=== PATIENT | male | born 1990 | race Caucasian/White ===

== ENCOUNTER 2021-05-28 22:26 | Emergency (ER) | payer OTHER, SELFPAY ==
--- NOTE | ~2021-05-28 | XR_ITS ---
EXAMINATION: XR chest 2V EXAM DATE: 05/28/2021 23:03 INDICATION: Dyspnea when working. Nausea. Emesis. TECHNIQUE: Frontal and lateral projections of the chest obtained and reviewed. There is no prior jose f dy for comparison. FINDINGS: The lungs are clear. There are no pleural effusions. The cardiomediastinal silhouette is within normal limits. There is no pneumothorax suspected. The bones and soft tissues are unremarkab le. IMPRESSION: No acute cardiopulmonary findings. Reviewed, dictated and finalized at location A. LING DRUM OPERATOR
--- NOTE | ~2021-05-28 | XR_ITS ---
EXAMINATION: XR abdomen/kub 1V DATE: 05/29/2021 01:38 INDICATION: Left ureteral stone. TECHNIQUE: A supine view of the abdomen on 2 radiographs was obtained. COMPARISON: CT abdomen and pelvis 05/29/2021 FINDINGS: There are no dilated loops of bowel. There is contrast in the renal collecting system. Ther e is mild left hydroureter. Surgical clips overlie the scrotum. IMPRESSION: 1. Mild left hydroureter. Reviewed, dictated and finalized at location A. UND INGREDIENT LOGISTICS SPECIALIST IMPRESSION: 1. Mild left hydroureter.
--- NOTE | ~2021-05-28 | CT_ITS ---
EXAMINATION: CT abdomen pelvis w con DATE: 05/29/2021 00:16 INDICATION: Left lower quadrant abdominal pain. Left leg pain. TECHNIQUE: Computed tomography (CT) of the abdomen and pelvis was performed with 100 mL Omnipaque 350 intravenous contrast. Automated exposure control and iterative reconstruction technique were employe d. The dose-length product was 260.65 mGy-cm. COMPARISON: None. FINDINGS: The visualized portions of the lung bases demonstrate minimal atelectasis. No pleural effus ion. The heart size is normal. No pericardial effusion. The liver, gallbladder, spleen, pancreas, and adrenal glands are normal. There is a 2 mm stone in right kidney. There is a 5 mm cyst in left kidne y. There is a 1 mm stone in left kidney. There is mild left hydronephrosis and hydroureter to the lev el of a 3 mm stone in distal left ureter. There are no dilated loops of bowel. The appendix is normal . There is mild lumbar spondylosis. IMPRESSION: 1. 3 mm stone in distal left ureter with mild left hydronephrosis and hydroureter. 2. Small bilateral nonobstructing kidney stones. Reviewed, dictated and finalized at location A. AL JOURNALIST IMPRESSION: 1. 3 mm stone in distal left ureter with mild left hydronephrosis and hydrouret er. 2. Small bilateral nonobstructing kidney stones.
[2021-05-28 22:35] VITALS: PULSE 101; RESP 24; TEMP 36.6; O2SAT 100
--- NOTE | 2021-05-28 22:35 | ED.ABDPAIN ---
HPI - Abdominal Pain General Chief Complaint: Abdominal Pain Stated Complaint: left side abd. pain, SOB, vomiting Time Seen by Provider: 05/28/21 22:34 Source: patient Mode of arrival: ambulatory Limitations: no limitations History of Present Illness HPI narrative: Patient is a 30-year-old male with a history of alcohol abuse, presenting for evaluation of nausea, vomiting, left lower quadrant abdominal pain. Patient states that he was working in a enclosed room with the mask on when he began to feel slightly short of breath, lightheaded. Patient felt like he was going to have a bowel movement, thus went to the bathroom, and began to feel nauseated. Patient then vomited several times in the bathroom. Emesis was nonbloody, nonbilious. Patient then began to panic and feel quite anxious, asking his girlfriend to bring him to the hospital. Patient states that he typically has 6 shots of vodka daily. He denies history of alcohol withdrawal. States he has not had any alcohol since yesterday. He denies fever, chills. Patient does report sharp pain in the left lower quadrant with radiation to the left flank and into the left testicle. He denies testicular swelling. No penile discharge. No dysuria or hematuria. Patient is not intoxicated. No alcohol intake today. Patient does have a history of vasectomy. Related Data Allergies Allergy/AdvReac Type Severity Reaction Status Date / Time No Known Allergies Allergy Mild Verified 02/09/17 11:52 Review of Systems Review of Systems: CONSTITUTIONAL: Denies fever, chills, or sweats. EYES: Denies visual changes, redness, or discharge. ENT: Denies rhinorrhea, congestion, sore throat, or otalgia. CARDIOVASCULAR: Denies chest pain, palpitations, or edema. RESPIRATORY: Denies cough or dyspnea. GASTROINTESTINAL: Reports left lower quadrant abdominal pain, nausea, vomiting, denies diarrhea GENITOURINARY: Denies dysuria or hematuria. Reports left testicular pain without edema. SKIN: Denies rash or itching. MUSCULOSKELETAL: Reports left flank pain without other joint pain, or myalgia. NEUROLOGIC: Denies headache, numbness, or weakness. PSYCHIATRIC: Reports anxiety PMFSH Social History Social History (Updated 05/28/21 @ 22:47 by Mer Asif MD) Smoking status: Never smoker Alcohol intake: current Drinks per week: 42 Alcohol use details: 6 shots daily Substance use: current Substance use type: marijuana Gender identity (if verbalized by the patient): Male Exam Narrative: GENERAL: Awake, alert, conversant, unwell appearing HEAD: Normocephalic, atraumatic. EYES: 2+ PERRLA and EOMI. ENT: Nares clear, no rhinorrhea or epistaxis. Mucous membranes moist. NECK: Supple. CHEST: No respiratory distress, breathing even and non labored HEART: Tachycardic rate, sinus rhythm ABDOMEN:Non distended, + LLQ tenderness with palpation, no rebound, no guarding, non rigid : Penis is circumcised. Testes are normal without tenderness on exam. No edema, erythema. EXTREMITIES: Normal range of motion. No edema. SKIN: Warm, dry, no rash. NEURO:No focal deficits. Alert and oriented x3. Ambulatory with a narrow based steady gait. Course Vital Signs Vital signs: Vital Signs Temperature 36.6 C 05/28/21 22:35 Pulse Rate 101 H 05/28/21 22:35 Respiratory Rate 24 H 05/28/21 22:35 Pulse Oximetry 100 05/28/21 22:35 Temperature 36.6 C 05/28/21 22:35 Pulse Rate 104 H 05/29/21 01:35 Respiratory Rate 18 05/29/21 01:35 Blood Pressure 168/84 H 05/29/21 01:35 Pulse Oximetry 96 05/29/21 01:35 MDM - Abdominal Pain MDM Narrative Medical decision making narrative: Patient presenting for evaluation of left lower quadrant abdominal pain, left flank pain, radiating to the left testicle. Testicular exam is normal without evidence of torsion, orchitis, epididymitis. IV access obtained, labs are drawn. Laboratory results show mild leukocytosis. No significant anemia. No ac
--- NOTE | 2021-05-28 22:51 | ECG_ITS ---
Measurements Intervals [place] Rate: 79 P: 65 CT: 144 QRS: 56 QRSD: 104 T: 59 QT: 337 QTc: 386 Interpretive Statements SINUS RHYTHM WITH MARKED SINUS ARRHYTHMIA DELAYED PRECORDIAL R/S TRANSITION NONSPECIFIC ST & T-WAVE ABNORMALITY- LATERAL LEADS BORDERLINE ECG Electronically Signed On 05-29-2021 5:22:09 OIL LEASE BUYER by Pro Linder D.O.
[2021-05-28] MEDS: SODIUM CHLORIDE 0.9% IV 1,000 ML 999 ML IV CONT (23:20)
[2021-05-28] MEDS: MORPHINE SULFATE (*CRX) 4 MG/ML INJ IV PUSH (23:21)
[2021-05-28] MEDS: METOCLOPRAMIDE HCL INJ 10 MG/2 ML VIAL IV PUSH (23:21)
[2021-05-28] MEDS: LORazepam INJ (*CRX) 2 MG/ML VIAL 0.5 MG IV PUSH (23:30)
[2021-05-28 23:42] LABS: Basophils Absolute Auto 0.1 K/mm3 (0.0-0.1); Basophils Percent Auto 0.5 % (0.2-1.2); Eosinophils Percent Auto 0.3 % (0-4.4); Hematocrit 43.6 % (42.0-52.0); Hemoglobin 15.7 g/dL (14.0-18.0); Immature Granulocyte Absolute 0.07 K/mm3 (0.00-0.031); Immature Granulocyte Percent A 0.5 % (0-0.5); Lymphocytes Absolute Auto 1.79 K/mm3 (0.9-3.2); Lymphocytes Percent Auto 13.4 % (18.3-44.2); Mean Corpuscular Hemoglobin 32.4 pg (26-34); Mean Corpuscular Volume 90.1 fl (80-100); Mean Platelet Volume 9.3 fl (7.4-10.4); Monocytes Absolute Auto 1.1 K/mm3 (0.1-0.6); Monocytes Percent Auto 8.4 % (2.6-8.5); Neutrophils Absolute Auto 10.3 K/mm3 (1.3-6.7); Neutrophils Percent Auto 76.9 % (45.5-73.1); Platelet Count Result 259 k/mm3 (150-375); Red Blood Count 4.84 M/mm3 (4.6-6.20); Red Cell Distribution Width 12.7 % (11.5-14.5); White Blood Count 13.4 K/mm3 (4.5-10.0)
[2021-05-28 23:54] LABS: Alanine Aminotransferase 19 U/L (4-50); Albumin Level 4.9 g/dL (3.5-5.1); Alkaline Phosphatase 79 U/L (38-126); Anion Gap 13 mmol/L (8-16); Aspartate Amino Transferase 37 U/L (17-59); Bilirubin,Total 0.7 mg/dL (0.2-1.3); Blood Urea Nitrogen 15 mg/dL (9-20); Calcium 10.1 mg/dL (8.4-10.2); Carbon Dioxide 22 mmol/L (22-30); Chloride 99 mmol/L (98-107); Estimated CRCL calculation 83 ml/min; Estimated Glomerular Filt Rate > 60; Glucose 89 mg/dL (65-110); Lipase 116 U/L (23-300); Sodium 134 mmol/L (137-145)
[2021-05-29 00:05] LABS: Add Urine Microscopic? YES; Appearance Urine Clear (Clear); Bacteria Urine Trace /hpf; Bilirubin Urine Negative (Negative); Blood Urine 3+ (Negative); Color Urine Straw (Yellow); Glucose Urine UA Negative (Negative); Ketones Urine 1+ mg/dL (Negative); Leukocyte Esterase Ur Negative LEU/UL (Negative); Mucus Urine Rare /lpf; Nitrate Urine Negative (Negative); Protein Urine Negative (Negative); RBC Urine 51-75 /hpf (0-2); Specific Grav Ur 1.008 (1.001-1.035); Squamous Epithelial Cell Urine Rare /hpf (Few); Urobilinogen Urine Negative mg/dL (<2.0); WBC Urine 0-3 /hpf
[2021-05-29 00:06] LABS: Troponin I < 0.012 ng/mL (0.000-0.034)
[2021-05-29 01:35] VITALS: BP 168/84; PULSE 104; RESP 18; O2SAT 96
== END 2021-05-29 01:52 | disposition home or self-care (01) ==
PROVIDERS: Family Medicine; Emergency Provider Emergency Medicine
DX: N23 Unspecified renal colic (principal); R94.31 Abnormal electrocardiogram [ECG] [EKG]
CPT/HCPCS: 36415; 71046; 74018; 74177; 80053; 81001; 83690; 84484; 85025; 93005; 96365; 96366; 96375; 99284; J0131; J2060; J2270; J2765; J7030; Q9967

== ENCOUNTER 2021-05-31 13:17 | Emergency (ER) | payer OTHER, SELFPAY ==
[2021-05-31 13:36] VITALS: BP 165/71; PULSE 185; RESP 30; TEMP 36.2; O2SAT 100
--- NOTE | 2021-05-31 13:54 | ED.ABDPAIN ---
HPI - Abdominal Pain General Chief Complaint: Abdominal Pain Stated Complaint: kidney stones Source: patient and family Mode of arrival: ambulatory History of Present Illness HPI narrative: This is a 30-year-old male who presented to urgent care with abdominal pain nausea and vomiting. According to patient's girlfriend he went to our ED department at [facility] and was given Flomax and pain medication for treatment of a nonobstructive kidney stone. According to the girlfriend he was not prescribed Flomax and they are requesting Flomax . I explained to patient and his girlfriend that they would need to go to our emergency department his problem will not be corrected with Flomax. I informed her that they will probably need imaging and consult urologist. At that time patient got up and said that his ball was hurting and left the facility. Related Data Allergies Allergy/AdvReac Type Severity Reaction Status Date / Time No Known Allergies Allergy Mild Verified 02/09/17 11:52 Review of Systems Review of Systems: Unable to complete ROS unobtainable: Yes unobtainable due to medical condition [facility] Family History Family History (Updated 05/31/21 @ 13:57 by JANELLE De Santiago) Other Family history non-contributory Social History Social History Smoking status: Never smoker Alcohol intake: current Drinks per week: 42 Alcohol use details: 6 shots daily Substance use: current Substance use type: marijuana Gender identity (if verbalized by the patient): Male Exam Narrative: Unable to complete patient left AMA Course Course Emergency Course: Patient left our facility AMA Vital Signs Vital signs: Vital Signs Temperature 97.1 F L 05/31/21 13:36 Pulse Rate 185 H 05/31/21 13:36 Respiratory Rate 30 H 05/31/21 13:36 Blood Pressure 165/71 H 05/31/21 13:36 Pulse Oximetry 100 05/31/21 13:36 Temperature 97.1 F L 05/31/21 13:36 Pulse Rate 185 H 05/31/21 13:36 Respiratory Rate 30 H 05/31/21 13:36 Blood Pressure 165/71 H 05/31/21 13:36 Pulse Oximetry 100 05/31/21 13:36 Discharge Plan Discharge Clinical Impression: Abdominal pain Qualifiers: Abdominal location: unspecified location Qualified Code(s): R10.9 - Unspecified abdominal pain Patient Disposition: Left Against Medical Advice Condition: Unstable Instructions: Abdominal Pain (ED) Prescriptions: No Action oxycodone-acetaminophen 5-325 mg tablet 1 tablet PO Q6H PRN (Reason: pain) 3 Days Qty: 14 RF: 0 tamsulosin [Flomax] 0.4 mg capsule 0.4 mg PO DAILY Qty: 30 RF: 0 ibuprofen 400 mg tablet 400 mg PO TID PRN (Reason: fever or pain) 10 Days Qty: 30 RF: 0 ondansetron 4 mg tablet,disintegrating 4 mg PO Q8H PRN (Reason: nausea and vomiting) 7 Days Qty: 20 RF: 0 acetaminophen 500 mg capsule 500 mg PO Q6H PRN (Reason: fever or pain) Qty: 30 RF: 0 Follow-up/Referrals: UNKNOWN,DOCTOR [Primary Care Provider] -
== END 2021-05-31 13:50 | disposition left against medical advice (07) ==
PROVIDERS: Emergency Provider Nurse Practitioner
DX: R10.9 Unspecified abdominal pain (principal)
CPT/HCPCS: 99211; G0463

== ENCOUNTER 2021-05-31 14:02 | Emergency (ER) | payer OTHER, SELFPAY ==
--- NOTE | ~2021-05-31 | XR_ITS ---
EXAMINATION: XR abdomen/kub 1V INDICATION: Left ureteral stone TECHNIQUE: Supine views of the abdomen were obtained on 2 radiographs. COMPARISON: CT from yesterday FINDINGS: There is a 3 mm stone projecting at the expected location of the left distal ureter, likely reflecting the stone identified on CT. There are phleboliths of the pelvis. A moderate volume of sto ol is present in the ascending and proximal transverse colon. There are no dilated loops of bowel. IMPRESSION: 1. Likely 3 mm stone in the left distal ureter. Reviewed, dictated and finalized at location A. AGE CHECKER
[2021-05-31 14:10] VITALS: BP 159/100; PULSE 110; RESP 16; TEMP 36.6; O2SAT 100
--- NOTE | 2021-05-31 15:37 | PC.NURSE ---
patient seen here on friday and dx with kidney stone. states only got vicodin filled and not the flomax he was prescribed. patient arrives to exam room screaming and using foul and threatening language stating that my balls hurt and threatening this rn that someone needs to do something now
[2021-05-31] MEDS: TAMSULOSIN HCL 0.4 MG CAPSULE PO (15:59)
[2021-05-31] MEDS: PROCHLORPERAZINE EDISYLATE 10 MG/2 ML VIAL IV PUSH (15:59)
[2021-05-31] MEDS: KETOROLAC 30 MG/ML VIAL (*BKC) IV PUSH (15:59)
--- NOTE | 2021-05-31 17:01 | ED.MALEGU ---
HPI - Male Genitourinary General Chief complaint: Urogenital-Male Stated complaint: kidney stone Time Seen by Provider: 05/31/21 15:41 Source: patient Mode of arrival: ambulatory Limitations: no limitations History of Present Illness HPI Narrative: 30-year-old male Complains of tremendous pain in his testicles 3 days ago he was here for a kidney stone, felt a little better, but the pain has returned with a severe vengeance at this point He has nausea and has tried to vomit but not much has come up No dysuria, no hematuria Related Data Allergies Allergy/AdvReac Type Severity Reaction Status Date / Time No Known Allergies Allergy Mild Verified 02/09/17 11:52 Review of Systems Constitutional: Constitutional: Denies chills and Denies fever(s) Gastrointestinal: Gastrointestinal: Reports abdominal pain, Reports nausea and Reports vomiting Genitourinary: Genitourinary: Reports testicular pain PMFSH Family History Family History Other Family history non-contributory Social History Social History Smoking status: Never smoker Alcohol intake: current Drinks per week: 42 Alcohol use details: 6 shots daily Substance use: current Substance use type: marijuana Gender identity (if verbalized by the patient): Male Exam Const: General: cooperative, healthy appearing and alert Orientation/consciousness: patient oriented x3 (alert) Other: Distressed HENMT: Head: normal to inspection, normocephalic and atraumatic Ears: external ears normal General nose exam: no epistaxis Eyes: Conjunctivae: conjunctivae normal EOM: EOMs intact bilaterally Neck: Neck: normal visual inspection, supple and no JVD Resp: Effort & Inspection: normal respiratory effort and not labored Auscultation: other (BS =) GI: GI Palp: Yes Soft to palpation, No Tenderness to palpation present (GI), No Guarding due to palpation present (GI) and No Rebound tenderness present : General: Yes CVA tenderness (Mild, left side) Male General Exam: Yes normal external exam Skin: General skin exam: normal color and no rashes or lesions noted Neuro: General: patient oriented x3 (alert) and moves all extremities Speech: normal speech Extrem: General: normal to inspection and no pedal edema Psych: Affect: normal affect Course Course Emergency Course: Symptoms essentially completely alleviated after meds and he fell asleep Vital Signs Vital signs: Vital Signs Temperature 36.6 C 05/31/21 14:10 Pulse Rate 110 H 05/31/21 14:10 Respiratory Rate 16 05/31/21 14:10 Blood Pressure 159/100 H 05/31/21 14:10 Pulse Oximetry 100 05/31/21 14:10 Temperature 36.6 C 05/31/21 14:10 Pulse Rate 110 H 05/31/21 14:10 Respiratory Rate 16 05/31/21 14:10 Blood Pressure 159/100 H 05/31/21 14:10 Pulse Oximetry 100 05/31/21 14:10 MDM - Male Genitourinary Medical Records Attestation: I reviewed the patient's medical records. Lab Data Attestation: I reviewed the patient's lab results. Imaging Data Radiologist's impression: ITS Impressions Abdomen X-Ray 05/31/21 16:44 IMPRESSION: 1. Likely 3 mm stone in the left distal ureter. Discharge Plan Discharge Clinical Impression: Ureteral colic Patient Disposition: Home, Self-Care Condition: Improved Instructions: Renal Colic (ED) Additional Instructions: Be sure to take ibuprofen 3 or 4 times a day regularly along with the Flomax, which a prescription for is included today, and use the other medications for rescue as needed Be sure to schedule a follow-up appointment with the urologist in case this thing does not pass Prescriptions: New tamsulosin [Flomax] 0.4 mg capsule 0.4 mg PO DAILY Qty: 10 RF: 0 No Action oxycodone-acetaminophen 5-325 mg tablet 1 tablet PO Q6H PRN (Reason: pain) 3 Days Qty: 14 RF: 0 tamsulosin [F
[2021-05-31 17:26] VITALS: BP 138/68; PULSE 70; RESP 16; O2SAT 99
== END 2021-05-31 17:28 | disposition home or self-care (01) ==
PROVIDERS: Emergency Provider Emergency Medicine
DX: N20.1 Calculus of ureter (principal)
CPT/HCPCS: 74018; 96374; 96375; 99211; 99284; A9270; G0463; J0780; J1885

== ENCOUNTER 2021-09-23 11:29 | Emergency (ER) | payer OTHER, MEDICAID, SELFPAY ==
[2021-09-23 11:37] VITALS: BP 156/84; PULSE 118; RESP 18; TEMP 36.7; O2SAT 98
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
[2021-09-23 11:59] VITALS: BP 138/83; PULSE 110; RESP 18
--- NOTE | 2021-09-23 12:14 | PC.NURSE ---
1145-- pt sitting on cart, and while saline soaking on wounds to evaluate them pt became dizzy, and was a little pale. made him lay back onto cart, and coached through deep breaths. pt recovered well. pupils JENNIFER. pt did c/o slight nausea. 1152- pt feeling much better B/P 138/83 P- 110-- ems called, Dr Henry from [place] ED accepts.
== END 2021-09-23 11:59 | disposition short-term general hospital (02) ==
PROVIDERS: Emergency Provider Nurse Practitioner
DX: S01.81XA Laceration without foreign body of other part of head, initial encounter (principal); S01.112A Laceration without foreign body of left eyelid and periocular area, initial encounter; S01.91XA Laceration without foreign body of unspecified part of head, initial encounter; W22.8XXA Striking against or struck by other objects, initial encounter; S09.90XA Unspecified injury of head, initial encounter; F12.90 Cannabis use, unspecified, uncomplicated
CPT/HCPCS: 99212; G0463

== ENCOUNTER 2021-09-23 12:12 | Emergency (ER) | payer OTHER, MEDICAID, SELFPAY ==
--- NOTE | ~2021-09-23 | CT_ITS ---
EXAMINATION: CT brain wo con INDICATION: Head injury COMPARISON: None TECHNIQUE: Standard unenhanced head CT. The dose-length product (DLP) was 605.33 mGy-cm. The mA was a djusted according to patient size. Iterative reconstruction technique was employed. FINDINGS: A scalp hematoma is noted near the cranial vertex. There is no intracranial hemorrhage, acu te infarction, or abnormal mass lesion. The ventricles are normal. There is no abnormal mass effect o r midline shift. The cabrera-white matter differentiation is normal. The basal cisterns are patent. The orbits are normal. The paranasal sinuses, mastoids and calvarium are normal. IMPRESSION: 1. No acute intracranial abnormality. Reviewed, dictated and finalized at location A.
--- NOTE | ~2021-09-23 | CT_ITS ---
EXAMINATION: CT cervical spine wo con DATE: 09/23/2021 12:54 INDICATION: Head injury TECHNIQUE: Computed tomography (CT) of the cervical spine was performed without intravenous contrast. The dose-length product (DLP) was 397.16 mGy-cm. Automated exposure control and iterative reconstruc tion technique were employed. COMPARISON: None FINDINGS: There is no fracture, dislocation, or subluxation. The vertebral body heights are maintaine d. There is mild loss of intervertebral disc space height at C5-6. The odontoid is intact. The prever tebral soft tissues are normal. IMPRESSION: 1. Mild cervical spondylosis without acute osseous abnormality. Reviewed, dictated and finalized at location A.
[2021-09-23 12:11] VITALS: BP 149/92; PULSE 76; RESP 20; TEMP 36.9; O2SAT 100
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
[2021-09-23] MEDS: ONDANSETRON HCL ODT 4 MG TABLET PO (13:29)
[2021-09-23] MEDS: TETANUS,DIPHTHERIA,AC PERTUSSIS ADULT (0.5 ML) BOOSTRIX IM (13:30)
[2021-09-23 14:45] VITALS: BP 134/88; PULSE 90; RESP 22; O2SAT 100
== END 2021-09-23 14:30 | disposition home or self-care (01) ==
PROVIDERS: Emergency Provider Emergency Medicine
DX: S01.01XA Laceration without foreign body of scalp, initial encounter (principal); S01.81XA Laceration without foreign body of other part of head, initial encounter; Z23 Encounter for immunization; M47.812 Spondylosis without myelopathy or radiculopathy, cervical region; Y00.XXXA Assault by blunt object, initial encounter
CPT/HCPCS: 12002; 12011; 70450; 72125; 90471; 90715; 99284; A9270

== ENCOUNTER 2023-02-15 14:39 | Emergency (ER) | payer BC, SELFPAY ==
--- NOTE | ~2023-02-15 | XR_ITS ---
XR ankle RT min 3V DATE: 02/15/2023 15:06 INDICATION: Generalized right ankle pain following injury 2 days ago TECHNIQUE: 4 views COMPARISON: None FINDINGS: There is mild to moderate lateral soft tissue swelling. No fracture or dislocation of the a nkle or disruption of the ankle mortise is detected. No periosteal reaction or bone destruction. IMPRESSION: Mild to moderate lateral soft tissue swelling of the ankle Reviewed, dictated and finalized at location A.
--- NOTE | ~2023-02-15 | XR_ITS ---
XR foot RT min 3V DATE: 02/15/2023 15:06 INDICATION: Pain following injury 2 days ago TECHNIQUE: 4 views of right foot COMPARISON: None FINDINGS: Small cortical avulsion fracture is noted at the proximal posterolateral aspect of the foot , likely from the distal lateral calcaneus; there is overlying soft tissue swelling. There is a pathologic intra-articular fracture at the distal medial aspect of the proximal phalanx of the right great toe, with minimal displacement. The underlying approximately 7.5 x 8.5 mm lytic lesi on may be due to degenerative or simple cyst or punched-out lesion of gout. No other fracture or dislocation, periosteal reaction or bone destruction is detected. Joint spaces a ppear relatively preserved. IMPRESSION: Small cortical avulsion fracture probably from the distal lateral aspect of the calcaneus Pathologic intra-articular fracture at the distal medial aspect of the proximal phalanx of the great toe Reviewed, dictated and finalized at location A. IMPRESSION: Small cortical avulsion fracture probably from the distal lateral a spect of the calcaneus Pathologic intra-articular fracture at the distal medial aspect of the proximal phalanx of the great toe
[2023-02-15 14:51] VITALS: BP 155/109; PULSE 125; RESP 16; TEMP 36.1; O2SAT 98
--- NOTE | 2023-02-15 15:32 | ED.LOWEXIN ---
HPI - Extremity Injury (Lower) General Chief Complaint: Extremity Injury, Lower Stated Complaint: right ankle injury Time Seen by Provider: 02/15/23 15:40 Source: patient Mode of arrival: ambulatory Limitations: no limitations History of Present Illness HPI Narrative: 32 y/o male presented for c/o right ankle pain, swelling and bruising after injury yesterday morning. States while jogging he stepped into a hole, causing him to twist the ankle. Could not bear weight yesterday, but is able to tolerate weight bearing and movement of the ankle today. Pain is to the lateral/posterior ankle, worse when standing, stating when he starts walking the pain subsides. Denies numbness, tingling or weakness of the foot. Took ibuprofen today. Has elevated and iced the ankle. Takes aspirin daily. Related Data Allergies Allergy/AdvReac Type Severity Reaction Status Date / Time No Known Allergies Allergy Mild Verified 02/15/23 15:25 Review of Systems Review of Systems: CONSTITUTIONAL: Denies body aches, fever, chills EYES: Denies visual changes ENT: Denies rhinorrhea, congestion CARDIOVASCULAR: Denies chest pain, palpitations, or edema. RESPIRATORY: Denies cough or dyspnea. GASTROINTESTINAL: Denies abdominal pain, nausea, vomiting, or diarrhea. SKIN: Denies rash, itching, or wounds. MUSCULOSKELETAL: reports right ankle pain and swelling Denies back pain, or myalgia. NEUROLOGIC: Denies headache, numbness, tingling, or weakness. PSYCH: Denies depression or anxiety. All systems reviewed & are unremarkable except as noted in HPI and below PMFSH Past Medical History Medical History Alcohol abuse Family History Family History Other Family history non-contributory Social History Social History Smoking status: Never smoker Alcohol intake: current Drinks per week: 42 Alcohol use details: 6 shots daily Substance use: current Substance use type: marijuana Gender identity (if verbalized by the patient): Male Comments At time of signature, I have reviewed and agree with nursing past medical, surgical, social and family history unless otherwise noted. Please see nursing chart for further information. There is no relevant family history pertinent to the presenting complaint Exam Narrative: GENERAL: Well-appearing, well-nourished, and in no acute distress. HEAD: Normocephalic, atraumatic. EYES: PERRLA, conjunctivae clear NECK: Supple. CHEST: Speaks in full sentences. No respiratory distress. HEART: Regular rate and rhythm. Normal and equal peripheral pulses. EXTREMITIES: Right lateral ankle with significant swelling and ecchymosis extending to the mid foot and lower leg, right foot has normal strength and sensation, tender to the lateral malleolus and posterolateral aspect of the ankle; slightly decreased range of motion at ankle endorses pain with movement. No open wounds, or obvious deformity; alignment normal, pulse palpable and equal bilaterally, skin warm, dry, pink. Capillary refill less than 3 seconds. SKIN: Warm, dry, no rash. Right 1st toe with subcutaneous bruise c/w 'blood blister' to medial aspect of distal phalanx NEURO: Alert and oriented x3. PSYCH: Normal mood and affect Course Course Emergency Course: Patient is aware of diagnosis, understands and agrees to treatment plan. Anticipatory guidance given. Patient agrees to follow-up as directed and is aware of reasons to seek care at the emergency department. Portions of this record may have been created with voice recognition software Level of Care: Express Care Visit Vital Signs Vital signs: Vital Signs Temperature 97.0 F L 02/15/23 14:51 Pulse Rate 125 H 02/15/23 14:51 Respiratory Rate 16 02/15/23 14:51 Blood Pressure 155/109 H 02/15/23 14:51 Pulse Oximetry 98 02/15/23 14:51 Oxygen Delivery Room Air 08
== END 2023-02-15 16:33 | disposition home or self-care (01) ==
PROVIDERS: Emergency Provider Nurse Practitioner Family; PCP Emergency Medicine
DX: S92.901A Unspecified fracture of right foot, initial encounter for closed fracture (principal); X50.9XXA Other and unspecified overexertion or strenuous movements or postures, initial encounter; Y93.02 Activity, running; F12.90 Cannabis use, unspecified, uncomplicated
CPT/HCPCS: 29515; 73610; 73630; 99213; 99214; G0463

== ENCOUNTER 2023-03-03 02:03 | Emergency (ER) | payer BC, SELFPAY ==
--- NOTE | ~2023-03-03 | XR_ITS ---
Right ankle Technique: AP, oblique, and lateral views were obtained. Clinical History: Injury Findings: There is a small fracture, probably related to the origin of the extensor digitorum brevis muscle, similar to prior exam. No new fracture or dislocation seen. Soft soft tissue swelling about t he ankle noted. Impression: Stable small avulsion fracture probably related to the origin of the extensor digitorum brevis muscle . No new fracture or dislocation seen. Soft tissue swelling about the ankle. Reviewed, dictated and finalized at location . Impression: Stable small avulsion fracture probably related to the origin of the extensor d igitorum brevis muscle. No new fracture or dislocation seen. Soft tissue swelling about the ankle.
[2023-03-03 02:04] VITALS: BP 166/107; PULSE 86; RESP 16; TEMP 36.8; O2SAT 99
--- NOTE | 2023-03-03 06:37 | ED.LOWEXIN ---
HPI - Extremity Injury (Lower) General Chief Complaint: Extremity Injury, Lower Stated Complaint: R ankle pain/swelling Time Seen by Provider: 03/03/23 05:53 History of Present Illness HPI Narrative: Patient stepped in a pothole a week ago and broke his left foot. He states he took his boot off and stepped in a pothole again today. Increased pain. Denies all other injuries. Related Data Allergies Allergy/AdvReac Type Severity Reaction Status Date / Time No Known Allergies Allergy Mild Verified 02/15/23 15:25 Review of Systems Review of Systems: Review of systems negative except for what is documented in the HPI [facility] Past Medical History Medical History Alcohol abuse Family History Family History Other Family history non-contributory Social History Social History Smoking status: Never smoker Alcohol intake: current Drinks per week: 42 Alcohol use details: 6 shots daily Substance use: current Substance use type: marijuana Gender identity (if verbalized by the patient): Male Exam Narrative: GENERAL: Well-appearing, well-nourished, and in no acute distress. HEAD: Normocephalic, atraumatic. ENT: Nares clear, no rhinorrhea or epistaxis. Mucous membranes moist. NECK: Normal ROM CHEST: No respiratory distress. EXTREMITIES: Normal range of motion. SKIN: Warm, dry, no rash. NEURO: No focal deficits. Alert and oriented x3. PSYCH: Normal mood and affect. Course Course Emergency Course: Patient is very anxious and twitching. Explained that he likely has the same injury he had when he was seen in urgent care. Advised to continue to wear the boot Vital Signs Vital signs: Vital Signs Temperature 36.8 C 03/03/23 02:04 Pulse Rate 86 03/03/23 02:04 Respiratory Rate 16 03/03/23 02:04 Blood Pressure 166/107 H 03/03/23 02:04 Pulse Oximetry 99 03/03/23 02:04 Oxygen Delivery Room Air 03/03/23 02:04 Temperature 36.8 C 03/03/23 02:04 Pulse Rate 86 03/03/23 02:04 Respiratory Rate 16 03/03/23 02:04 Blood Pressure 166/107 H 03/03/23 02:04 Pulse Oximetry 99 03/03/23 02:04 Oxygen Delivery Room Air 03/03/23 02:04 Discharge Plan Discharge Clinical Impression: Foot fracture, left Qualifiers: Encounter type: initial encounter Fracture type: closed Qualified Code(s): S92.902A - Unspecified fracture of left foot, initial encounter for closed fracture Patient Disposition: Home, Self-Care Condition: Stable Additional Instructions: Wear the boot Ibuprofen and tylenol for pain elevate and apply ice Prescriptions: No Action ibuprofen 800 mg tablet 800 mg PO TID PRN (Reason: pain) Qty: 30 0RF Follow-up/Referrals: Joe Javier MD [Primary Care Provider] - Time of Disposition: 06:42
== END 2023-03-03 07:04 | disposition home or self-care (01) ==
PROVIDERS: Emergency Provider Emergency Medicine; PCP Emergency Medicine
DX: S92.902A Unspecified fracture of left foot, initial encounter for closed fracture (principal); X50.0XXA Overexertion from strenuous movement or load, initial encounter
CPT/HCPCS: 73610; 99283

== ENCOUNTER 2024-04-28 23:53 | Observation (INO) | payer BC, SELFPAY ==
[2024-04-28 23:56] VITALS: PULSE 93; RESP 24; TEMP 36.5; O2SAT 100
[2024-04-29] VITALS (38 sets, daily range): BP systolic 110–160; BP diastolic 67–103; PULSE 76–117; RESP 12–25; TEMP 36.3–37.2; O2SAT 90–100; BMI 20.3
[2024-04-29] MEDS: SODIUM CHLORIDE 0.9% IV 1,000 ML 999 ML IV CONT (00:08)
--- NOTE | 2024-04-29 00:12 | ECG_ITS ---
Test Date: 2024-04-29 00:12:47 Measurements Intervals [place] Rate: 93 P: 47 DE: 146 QRS: 68 QRSD: 101 T: 61 QT: 359 QTc: 447 Interpretive Statements SINUS RHYTHM BASELINE ARTIFACT- V1-V3 NORMAL ECG No previous ECG available for comparison Electronically Signed On 04-29-2024 08:02:31 [employer] [employer] by Pro Linder D.O.
[2024-04-29] MEDS: NALOXONE HCL INJ 2 MG/2 ML AMP IV PUSH (00:24)
[2024-04-29 00:31] LABS: Magnesium 2.7 mg/dL (1.6-2.3)
[2024-04-29 00:33] LABS: Alanine Aminotransferase 19 U/L (6-50); Albumin Level 4.3 g/dL (3.5-5.1); Alkaline Phosphatase 66 U/L (38-126); Anion Gap 11 mmol/L (4-12); Aspartate Amino Transferase 35 U/L (17-59); Bilirubin,Total 0.4 mg/dL (0.2-1.3); Blood Urea Nitrogen 15 mg/dL (9-20); Calcium 8.4 mg/dL (8.4-10.2); Carbon Dioxide 24 mmol/L (22-30); Chloride 109 mmol/L (98-107); Estimated CRCL calculation 77 ml/min; Estimated Glomerular Filt Rate > 60; Glucose 78 mg/dL (65-110); Potassium 3.9 mmol/L (3.4-5.0); Sodium 144 mmol/L (137-145)
--- NOTE | 2024-04-29 00:37 | ED.GENADULT ---
HPI - General Adult General Chief complaint: Overdose Stated complaint: Fentanyl OD/ETOH Time Seen by Provider: 04/28/24 23:57 Source: EMS Mode of arrival: EMS Limitations: altered mental status History of Present Illness HPI narrative: 33-year-old with a history of fentanyl abuse the brought in by EMS with the complaints of overdose. [place] d[place]y. Patient states that he has taken multiple doses of fentanyl. He denies having any chest pain or shortness of breath no trauma. Onset (ago): day(s) (1) Associated symptoms: denies other symptoms Treatments prior to arrival: none Related Data Allergies Allergy/AdvReac Type Severity Reaction Status Date / Time No Known Allergies Allergy Mild Verified 02/15/23 15:25 [facility] Past Medical History Medical History Alcohol abuse Family History Family History Other Family history non-contributory Social History Social History Smoking status: Never smoker Alcohol intake: current Drinks per week: 42 Alcohol use details: 6 shots daily Substance use: current Substance use type: marijuana Gender identity (if verbalized by the patient): Male Exam Narrative: GENERAL: well-nourished, lethergic HEAD: Normocephalic, atraumatic. EYES: PERRLA and EOMI. NECK: Supple. CHEST: Clear to auscultation. No respiratory distress. HEART: Regular rate and rhythm. No murmur heard. Normal peripheral pulses. ABDOMEN: Soft, nontender, nondistended, normal active bowel sounds. EXTREMITIES: Normal range of motion. No edema. SKIN: Warm, dry, no rash. NEURO: No focal deficits. Arousable PSYCH: Normal mood and affect. Course Course Emergency Course: Patient was extremely lethargic I started him on IV Narcan drip. He has was responding to oral stimuli and he was able to maintain his airway. Discussed with Dr. Currie and Dr. Pascal accepted the patient. Vital Signs Vital signs: Vital Signs Temperature 36.5 C 04/28/24 23:56 Pulse Rate 93 04/28/24 23:56 Respiratory Rate 24 H 04/28/24 23:56 Pulse Oximetry 100 04/28/24 23:56 Oxygen Delivery Room Air 04/28/24 23:56 Temperature 36.5 C 04/28/24 23:56 Pulse Rate 85 04/29/24 00:35 Respiratory Rate 9 L 04/29/24 00:35 Blood Pressure 120/87 04/29/24 00:35 Pulse Oximetry 100 04/29/24 00:35 Oxygen Delivery Room Air 04/29/24 00:09 Medical Decision Making Medical Records Medical records reviewed: Yes I reviewed the external patient's medical records. Vital Signs Vital Signs: Vital Signs Temperature 36.5 C 04/28/24 23:56 Pulse Rate 93 04/28/24 23:56 Respiratory Rate 24 H 04/28/24 23:56 Pulse Oximetry 100 04/28/24 23:56 Oxygen Delivery Room Air 04/28/24 23:56 Temperature 36.5 C 04/28/24 23:56 Pulse Rate 85 04/29/24 00:35 Respiratory Rate 9 L 04/29/24 00:35 Blood Pressure 120/87 04/29/24 00:35 Pulse Oximetry 100 04/29/24 00:35 Oxygen Delivery Room Air 04/29/24 00:09 Lab Data 04/29/24 00:12 04/29/24 00:12 Labs: Lab Results 04/29/24 Range/Units 00:12 WBC 7.4 (4.5-10.0) K/mm3 RBC 4.53 L (4.6-6.20) M/mm3 Hgb 14.8 (14.0-18.0) g/dL Hct 43.5 (42.0-52.0) % MCV 96.0 (80-100) fl MCH 32.7 (26-34) pg MCHC 34.0 (32-36) g/dl RDW 12.7 (11.5-14.5) % Plt Count 276 (150-375) k/mm3 MPV 9.3 (7.4-10.4) fl Immature Gran % (Auto) 0.3 (0-0.5) % Neut % (Auto) 36.4 L (45.5-73.1) % Lymph % (Auto) 51.5 H (18.3-44.2) % [place] % (Auto) 8.1 (2.6-8.5) % Eos % (Auto) 2.6 (0-4.4) % Baso % (Auto) 1.1 (0.2-1.2) % Lymph # (Auto) 3.81 H (0.9-3.2) K/mm3 [place] # (Auto) 0.6 (0.1-0.6) K/mm3 Eos # (Auto) 0.2 (0-0.3) K/mm3 Baso # (Auto) 0.1 (0.0-0.1) K/mm3 Abs Immat Gran (auto) 0.02 (0.00-0.031) K/mm3 Absolute Neuts (auto) 2.7 (1.3-6.7) K/mm3 Absolute Nucleated RBC 0.000 (0.0-0.012) K/mm3 Nucleated RBC % 0.0 (0.0-0.2) % Sodium 144 (137-145) mmol/L Potassium 3.9 (3.4-5.0) mmol/L Chloride 109 H (98-107) mmol/L Carbon Dioxide 24 (22-30) mmol/L Anion Gap 11 (4-12) mmol/L BUN 15 (9-20) mg/dL Creatinine 1.00 (0.7-1.3) mg/dL Estim Creat Clear Calc 77 ml/min Estimated GFR > 60 (59 - ) Glucose 78 (65-110) mg/dL Calcium 8.4 (8.4-10.2) mg/dL Magnesium 2.7 H (1.6-2.3) mg/dL Total Bilirubin 0.4 (0.2-1.3) mg/dL AST 35 (17-59) U/L ALT 19 (6-50) U/L Alkaline Phosphatase 66 (38-126) U/L Total Protein 7.0 (6.3-8.2) g/dL Albumin 4.3 (3.5-5.1) g/dL Salicylates < 1.0 L (2-20) mg/dL Acetaminophen < 10 L (10-30) ug/mL Ethyl Alcohol 300 (<10) mg/dL ECG Data EKG #1: ECG completion date: 04/29/24 ECG completion time: 00:12 EKG Interpretation: normal rate (93), no ectopy, normal QT and NL axis Critical Care Time Critical Care Time Critical Care Time: Yes Total Critical Care Time: 45 Discharge Plan Discharge Clinical Impression: Drug overdose, Alcohol abuse Patient Disposition: Still a Patient Condition: Stable Time of Disposition: 03:25
[2024-04-29 00:47] LABS: Basophils Absolute Auto 0.1 K/mm3 (0.0-0.1); Basophils Percent Auto 1.1 % (0.2-1.2); Eosinophils Absolute Auto 0.2 K/mm3 (0-0.3); Eosinophils Percent Auto 2.6 % (0-4.4); Hematocrit 43.5 % (42.0-52.0); Hemoglobin 14.8 g/dL (14.0-18.0); Immature Granulocyte Absolute 0.02 K/mm3 (0.00-0.031); Immature Granulocyte Percent A 0.3 % (0-0.5); Lymphocytes Absolute Auto 3.81 K/mm3 (0.9-3.2); Lymphocytes Percent Auto 51.5 % (18.3-44.2); Mean Corpuscular Hemoglobin 32.7 pg (26-34); Mean Platelet Volume 9.3 fl (7.4-10.4); Monocytes Absolute Auto 0.6 K/mm3 (0.1-0.6); Monocytes Percent Auto 8.1 % (2.6-8.5); Neutrophils Absolute Auto 2.7 K/mm3 (1.3-6.7); Neutrophils Percent Auto 36.4 % (45.5-73.1); Platelet Count Result 276 k/mm3 (150-375); Red Blood Count 4.53 M/mm3 (4.6-6.20); Red Cell Distribution Width 12.7 % (11.5-14.5); White Blood Count 7.4 K/mm3 (4.5-10.0)
[2024-04-29 00:51] LABS: Acetaminophen < 10 ug/mL (10-30); Ethanol 300 mg/dL (<10); Salicylate < 1.0 mg/dL (2-20)
[2024-04-29] MEDS: SODIUM CHLORIDE 0.9% IV CONT (00:56)
[2024-04-29] MEDS: NALOXONE HCL IV CONT (00:56)
[2024-04-29 03:28] LABS: Add Urine Microscopic? YES; Appearance Urine Clear (Clear); Bacteria Urine None Seen /hpf; Bilirubin Urine Negative (Negative); Blood Urine Trace (Negative); Color Urine Yellow (Yellow); Glucose Urine UA Negative (Negative); Ketones Urine Negative (Negative); Leukocyte Esterase Ur Negative LEU/UL (Negative); Nitrate Urine Negative (Negative); Non Pathogenic Casts 0-2; Protein Urine Negative (Negative); RBC Urine 0-2 /hpf (0-2); Specific Grav Ur 1.006 (1.001-1.035); Squamous Epithelial Cell Urine None Seen /hpf (Few); Urobilinogen Urine 0.2 mg/dL (<2.0); WBC Urine 0-5 /hpf (0-3)
--- NOTE | 2024-04-29 03:43 | PC.NURSE ---
pt transferred to icu via stretcher with lindsay and 2 rn. narcan gtt infusing at time of transfer.
--- NOTE | 2024-04-29 03:53 | ADMGEN ---
This patient, Ced Calloway, was admitted to Intensive Care Unit-6 at 0315. Patient/family oriented to hospital policies and general routines including ID bracelet, bed and alarms, visiting hours, pain management, procedures, bathroom and other care routines, personal items, smoking policy, room service/diet, and visiting hours. Information on how to activate the Rapid Response Team has been discussed. Patient/Family are encouraged to report perceived risks to care and to ask questions if they do not understand what they are told or what they should do.
[2024-04-29 04:43] LABS: Barbiturate Screen Urine Negative (Negative); Benzodiazepines Screen Urine Negative (Negative); Cannabinoid Screen Urine Negative (Negative); Cocaine Screen Urine Negative (Negative); Methadone Screen Urine Negative (Negative); Phencyclidine Screen Urine Negative (Negative)
[2024-04-29 04:45] LABS: Amphetamine Screen Urine Positive (Negative); Opiate Screen Urine Negative (Negative)
--- NOTE | 2024-04-29 04:58 | P.HP_ITS ---
H&P: HPI History of Present Illness Date/Time: 04/29/24 04:58 Chief Complaint: OD Narrative: This is a 33-year-old male with past medical history significant for opiate substance dependence patient was brought to emergency room after he overdosed on fentanyl at the time of my visit patient was intoxicated unable to participate in history taking. Patient has been admitted for further evaluation management and treatment. Allegedly patient took [address] fentanyl Review of Systems Review of Systems: ROS unobtainable: Yes unobtainable due to mental status PMFSH Past Medical History Medical History Alcohol abuse Family History Family History Other Family history non-contributory Social History Social History Smoking status: Never smoker Alcohol intake: current Drinks per week: 42 Alcohol use details: 6 shots daily Substance use: current Substance use type: marijuana Gender identity (if verbalized by the patient): Male Spiritual care concerns: No Meds Home Medications and Allergies Home Medications Medication Instructions Recorded Confirmed Type buprenorphine 8 mg-naloxone 2 mg 1 film sublingual BID 04/29/24 04/29/24 History sublingual film Allergies Allergy/AdvReac Type Severity Reaction Status Date / Time No Known Allergies Allergy Mild Verified 02/15/23 15:25 Vital Signs Vital Signs - 24 hr 04/28/24 23:56 04/29/24 00:03 04/29/24 00:09 Temperature 97.7 F Pulse Rate 93 Respiratory Rate 24 H 15 Blood Pressure Pulse Oximetry 100 Oxygen Delivery Room Air Room Air 04/29/24 00:10 04/29/24 00:01 04/29/24 00:03 Temperature Pulse Rate 95 94 99 Respiratory Rate 25 H 16 Blood Pressure 135/83 Pulse Oximetry 100 100 Oxygen Delivery 04/29/24 00:15 04/29/24 00:16 04/29/24 00:30 Temperature Pulse Rate 90 98 92 Respiratory Rate 21 H 18 19 Blood Pressure 131/94 H Pulse Oximetry 100 99 Oxygen Delivery 04/29/24 00:35 04/29/24 00:36 04/29/24 00:45 Temperature Pulse Rate 85 89 93 Respiratory Rate 19 21 H 19 Blood Pressure 120/87 Pulse Oximetry 100 100 100 Oxygen Delivery 04/29/24 00:46 04/29/24 01:00 04/29/24 01:01 Temperature Pulse Rate 86 89 90 Respiratory Rate 18 18 18 Blood Pressure 122/83 122/78 Pulse Oximetry 100 100 98 Oxygen Delivery 04/29/24 01:25 04/29/24 01:30 04/29/24 01:32 Temperature Pulse Rate 89 90 92 Respiratory Rate 14 17 22 H Blood Pressure 120/70 Pulse Oximetry 100 100 93 Oxygen Delivery 04/29/24 01:45 04/29/24 01:47 04/29/24 02:05 Temperature Pulse Rate 98 90 103 H Respiratory Rate 21 H 18 21 H Blood Pressure 124/73 130/93 H Pulse Oximetry 93 97 100 Oxygen Delivery 04/29/24 02:07 04/29/24 02:15 04/29/24 02:34 Temperature Pulse Rate 94 90 100 Respiratory Rate 19 19 20 Blood Pressure Pulse Oximetry 100 98 91 Oxygen Delivery 04/29/24 02:45 04/29/24 02:46 04/29/24 03:11 Temperature Pulse Rate 102 H 101 H 89 Respiratory Rate 21 H 20 Blood Pressure 134/70 Pulse Oximetry 90 90 Oxygen Delivery 04/29/24 03:15 04/29/24 03:18 04/29/24 03:30 Temperature Pulse Rate 83 92 93 Respiratory Rate 14 16 19 Blood Pressure 125/78 Pulse Oximetry 96 100 97 Oxygen Delivery 04/29/24 03:31 04/29/24 04:00 04/29/24 04:00 Temperature Pulse Rate 95 103 H Respiratory Rate 18 Blood Pressure 118/78 Pulse Oximetry 97 Oxygen Delivery Room Air 04/29/24 04:00 04/29/24 04:04 04/29/24 03:47 Temperature 97.4 F L 98.4 F Pulse Rate 103 H 85 95 Respiratory Rate 12 19 18 Blood Pressure 124/81 120/87 118/78 Pulse Oximetry 100 100 97 Oxygen Delivery Exam Narrative: Patient is laying in a stretcher Const: General: comfortable, no acute distress, well developed, lethargic and thin Nutritional Appearance: thin Orientation/consciousness: Other orientation findings (Intoxicated) HENMT: Head: normal to inspection, normocephalic and atraumatic Ears: hearing grossly normal bilaterally Face/Nose/Sinus: normal facial exam Face and sinus: normal facial exam Eyes: General: appearance normal, both eyes and all related structures Pupils: Equal, round and reactive pupils present EOM: EOMs intact bilaterally Other: Pupils are 2 mm in diameter Neck: Neck: full ROM, no lymphadenopathy and no JVD Thyroid: thyroid normal Lymphatic: no lymphadenopathy noted Resp: Effort & Inspection: normal respiratory effort and able to speak in complete sentences Auscultation: clear to auscultation bilaterally Cardio: Jugular venous distension: no JVD Rate: regular rate Rhythm: regular rhythm Heart sounds: S1 normal heart sound present and S2 normal heart sound present GI: GI Palp: Yes Soft to palpation and Yes No hepatosplenomegaly present : General: Yes deferred Skin: Rashes: no rashes Wounds: no wounds Neuro: General: moves all extremities, no focal motor deficits and CN's II-XI intact bilaterally Cranial nerves: Yes CN's II-XII intact bilaterally and Yes Equal, round and reactive pupils present Cognition (Neuro): abnormal cognition (Intoxicated) Gait exam (Neuro): Unable to assess gait Motor exam (neuro): 5/5 motor strength present throughout Extrem: General: normal to inspection, full ROM, no joint enlargement and no pedal edema H&P: Results Labs Labs: Short CBC 04/29/24 Range/Units 00:12 WBC 7.4 (4.5-10.0) K/mm3 Hgb 14.8 (14.0-18.0) g/dL Hct 43.5 (42.0-52.0) % Plt Count 276 (150-375) k/mm3 BMP 04/29/24 00:12 Sodium 144 Potassium 3.9 Chloride 109 H Carbon Dioxide 24 BUN 15 Creatinine 1.00 Glucose 78 Calcium 8.4 Liver Function 04/29/24 Range/Units 00:12 Total Bilirubin 0.4 (0.2-1.3) mg/dL AST 35 (17-59) U/L ALT 19 (6-50) U/L Alkaline Phosphatase 66 (38-126) U/L Albumin 4.3 (3.5-5.1) g/dL Urine 04/29/24 Range/Units 01:23 Urine Color Yellow (Yellow) Urine Appearance Clear (Clear) Urine pH 6.0 (5.0-9.0) Ur Specific [place] 1.006 (1.001-1.035) Urine Protein Negative (Negative) mg/dL Urine Glucose (UA) Negative (Negative) mg/dL Assessment and Plan Assessment and plan (1) Drug overdose: Qualifiers: Encounter type: initial encounter Injury intent: accidental or unintentional Qualified Code(s): T50.901A - Poisoning by unspecified drugs, medicaments and biological substances, accidental (unintentional), initial encounter Code(s): T50.901A - Poisoning by unspecified drugs, medicaments and biological substances, accidental (unintentional), initial encounter Status: Acute Assessment and Plan: Admit to intensive care unit Supportive care Continue to monitor (2) Alcohol abuse: Code(s): F10.10 - Alcohol abuse, uncomplicated Status: Acute Assessment and Plan: CIWA as needed (3) Altered mental status: Code(s): R41.82 - Altered mental status, unspecified Status: Acute Assessment and Plan: Likely secondary to overdose on fentanyl Continue to monitor Hospitalist MIPS Advance Care Plan I have confirmed that the patient's Advanced Care Plan is present, code status is documented, or surrogate decision maker is listed in patient medical record.: Yes Medication Reconciliation I have utilized all available resources to obtain, update and review the patients current medications (includes all prescriptions, OTC, herbals, cannabis, and nutritional supplements).: Yes
[2024-04-29] MEDS: FOLIC ACID 1 MG/0.2 ML INJ IV PUSH (09:14)
[2024-04-29] MEDS: THIAMINE HCL 200 MG/2 ML VIAL 100 MG IV PUSH (09:14)
[2024-04-29] MEDS: BUPRENORPHINE/NALOXONE (*CRX) 4 MG/1 MG SL FILM 2 EACH SUBLINGUAL (09:15)
--- NOTE | 2024-04-29 10:12 | P.CONIN_ITS ---
Assessment and Plan Assessment and plan (1) Altered mental status: Code(s): R41.82 - Altered mental status, unspecified Status: Acute (2) Drug overdose: Qualifiers: Encounter type: initial encounter Injury intent: accidental or unintentional Qualified Code(s): T50.901A - Poisoning by unspecified drugs, medicaments and biological substances, accidental (unintentional), initial encounter Code(s): T50.901A - Poisoning by unspecified drugs, medicaments and biological substances, accidental (unintentional), initial encounter Status: Acute (3) Alcohol abuse: Code(s): F10.10 - Alcohol abuse, uncomplicated Status: Acute Plan Patient now alert awake oriented. Continue IV fluids. Wean off Narcan infusion Patient was restarted on his Suboxone Monitor for any signs of withdrawal, mental status change or respiratory depression Start thiamine and folic acid SCDs, regular diet is ordered Human Resources Psychologist Consult Note Consult date: 04/29/24 Reason for consult: Fentanyl overdose. HPI: Ced Calloway is a 33 year old male with past medical history of polysubstance abuse was [place] by EMS [place]. Patient admitted in the ER that he took multiple doses of fentanyl. He also was found to be intoxicated with alcohol. He with protecting his airway and was admitted to ICU on Narcan infusion and was given IV fluids. This morning patient is awake alert and denies any complaints. He states he feels tired. He does not remember what he took and states that maybe Xanax or fentanyl. It was a pill. He is not diverting information regarding where he got the pills from. He denies any IV drug use in the past. He states he has used all different type drugs in the past. He admits to drinking a 5th of alcohol every day. He has been drinking for last 20 years. He has been to multiple rehabs. He denies any suicidal homicidal ideation. He denies any other physical symptoms. Patient denies fever, chest pain, shortness of breath, cough, nausea vomiting, abdominal pain,, diarrhea, headache or constipation.. All other systems were reviewed and were negative Review of Systems Review of Systems: All systems reviewed & are unremarkable except as noted in HPI and below (HPI) [facility] Past Medical History Medical History (Updated 04/29/24 @ 10:13 by Jose Cruz Cruz MD) Alcohol abuse Polysubstance abuse Family History Family History Other Family history non-contributory Social History Social History Smoking status: Never smoker Alcohol intake: current Drinks per week: 42 Alcohol use details: 6 shots daily Substance use: current Substance use type: marijuana Gender identity (if verbalized by the patient): Male Spiritual care concerns: No Meds Home Medications and Allergies Home Medications Medication Instructions Recorded Confirmed Type buprenorphine 8 mg-naloxone 2 mg 1 film sublingual BID 04/29/24 04/29/24 History sublingual film Allergies Allergy/AdvReac Type Severity Reaction Status Date / Time No Known Allergies Allergy Mild Verified 02/15/23 15:25 Vital Signs Vital Signs - 24 hr 04/28/24 23:56 04/29/24 00:03 04/29/24 00:09 Temperature 36.5 C Pulse Rate 93 Respiratory Rate 24 H 15 Blood Pressure Pulse Oximetry 100 Oxygen Delivery Room Air Room Air 04/29/24 00:10 04/29/24 00:01 04/29/24 00:03 Temperature Pulse Rate 95 94 99 Respiratory Rate 25 H 16 Blood Pressure 135/83 Pulse Oximetry 100 100 Oxygen Delivery 04/29/24 00:15 04/29/24 00:16 04/29/24 00:30 Temperature Pulse Rate 90 98 92 Respiratory Rate 21 H 18 19 Blood Pressure 131/94 H Pulse Oximetry 100 99 Oxygen Delivery 04/29/24 00:35 04/29/24 00:36 04/29/24 00:45 Temperature Pulse Rate 85 89 93 Respiratory Rate 19 21 H 19 Blood Pressure 120/87 Pulse Oximetry 100 100 100 Oxygen Delivery 04/29/24 00:46 04/29/24 01:00 04/29/24 01:01 Temperature Pulse Rate 86 89 90 Respiratory Rate 18 18 18 Blood Pressure 122/83 122/78 Pulse Oximetry 100 100 98 Oxygen Delivery 04/29/24 01:25 04/29/24 01:30 04/29/24 01:32 Temperature Pulse Rate 89 90 92 Respiratory Rate 14 17 22 H Blood Pressure 120/70 Pulse Oximetry 100 100 93 Oxygen Delivery 04/29/24 01:45 04/29/24 01:47 04/29/24 02:05 Temperature Pulse Rate 98 90 103 H Respiratory Rate 21 H 18 21 H Blood Pressure 124/73 130/93 H Pulse Oximetry 93 97 100 Oxygen Delivery 04/29/24 02:07 04/29/24 02:15 04/29/24 02:34 Temperature Pulse Rate 94 90 100 Respiratory Rate 19 19 20 Blood Pressure Pulse Oximetry 100 98 91 Oxygen Delivery 04/29/24 02:45 04/29/24 02:46 04/29/24 03:11 Temperature Pulse Rate 102 H 101 H 89 Respiratory Rate 21 H 20 Blood Pressure 134/70 Pulse Oximetry 90 90 Oxygen Delivery 04/29/24 03:15 04/29/24 03:18 04/29/24 03:30 Temperature Pulse Rate 83 92 93 Respiratory Rate 14 16 19 Blood Pressure 125/78 Pulse Oximetry 96 100 97 Oxygen Delivery 04/29/24 03:31 04/29/24 04:00 04/29/24 04:00 Temperature Pulse Rate 95 103 H Respiratory Rate 18 Blood Pressure 118/78 Pulse Oximetry 97 Oxygen Delivery Room Air 04/29/24 04:00 04/29/24 04:04 04/29/24 06:00 Temperature 36.3 C L 36.9 C Pulse Rate 103 H 85 88 Respiratory Rate 12 19 Blood Pressure 124/81 120/87 Pulse Oximetry 100 100 Oxygen Delivery 04/29/24 06:00 04/29/24 08:00 04/29/24 08:06 Temperature Pulse Rate 80 84 82 Respiratory Rate 12 13 Blood Pressure 110/69 154/83 H Pulse Oximetry 99 100 Oxygen Delivery 04/29/24 08:00 04/29/24 03:47 Temperature Pulse Rate 84 95 Respiratory Rate 13 18 Blood Pressure 118/78 Pulse Oximetry 100 97 Oxygen Delivery Room Air Exam Narrative: General: Pt is alert awake and in NAD Lungs/Chest: Trachea central Clear BS B/L, No crackles or wheezing. Cardiac: RRR. Normal S1 S2. No murmurs Circulation: Pedal pulses are intact and symmetrical. Abdomen: Normal bowel sounds.. Soft. NT. ND. Extremities: No clubbing, cyanosis or edema. Warm : Mercado in place Neurologic: Follows commands. Moves all 4 extremities PERRL AO x3 Skin: No Rash several tattoos all over his body's Results Labs 04/29/24 00:12 11/07/24 00:12 Labs: Short CBC 04/29/24 Range/Units 00:12 WBC 7.4 (4.5-10.0) K/mm3 Hgb 14.8 (14.0-18.0) g/dL Hct 43.5 (42.0-52.0) % Plt Count 276 (150-375) k/mm3 BMP 04/29/24 00:12 Sodium 144 Potassium 3.9 Chloride 109 H Carbon Dioxide 24 BUN 15 Creatinine 1.00 Glucose 78 Calcium 8.4 Liver Function 04/29/24 Range/Units 00:12 Total Bilirubin 0.4 (0.2-1.3) mg/dL AST 35 (17-59) U/L ALT 19 (6-50) U/L Alkaline Phosphatase 66 (38-126) U/L Albumin 4.3 (3.5-5.1) g/dL Urine 04/29/24 Range/Units 01:23 Urine Color Yellow (Yellow) Urine Appearance Clear (Clear) Urine pH 6.0 (5.0-9.0) Ur Specific [place] 1.006 (1.001-1.035) Urine Protein Negative (Negative) mg/dL Urine Glucose (UA) Negative (Negative) mg/dL Quality VTE Prophylaxis VTE prophylaxis: mechanical ordered Hospitalist MIPS Advance Care Plan I have confirmed that the patient's Advanced Care Plan is present, code status is documented, or surrogate decision maker is listed in patient medical record.: Yes Medication Reconciliation I have utilized all available resources to obtain, update and review the patients current medications (includes all prescriptions, OTC, herbals, cannabis, and nutritional supplements).: Yes
--- NOTE | 2024-04-29 16:48 | P.DS_ITS ---
DS: Admitting Diagnosis Discharge Date 04/29/24 Admitting Diagnosis Overdose DS: Discharge Diagnosis Discharge Diagnosis (1) Altered mental status: Code(s): R41.82 - Altered mental status, unspecified Status: Acute (2) Drug overdose: Qualifiers: Encounter type: initial encounter Injury intent: accidental or unintentional Qualified Code(s): T50.901A - Poisoning by unspecified drugs, medicaments and biological substances, accidental (unintentional), initial encounter Code(s): T50.901A - Poisoning by unspecified drugs, medicaments and biological substa nces, accidental (unintentional), initial encounter Status: Acute (3) Alcohol abuse: Code(s): F10.10 - Alcohol abuse, uncomplicated Status: Acute DS: Summary Hospital Course Reason for hospitalization: 33yo male with hx of substance abuse and alcohol abuse who was brought to emergency room after he overdosed on fentanyl. Please see H&P for details. Hospital Course: Patient allegedly took [address]anyl. He was intoxicated on admission. He was able to maintain his airway. He remained on room air. CBC and CMP were essentially normal. UA negative. EKG normal. EtOH level was 300. Acetaminophen ans salicylate level negative. UDS positive for amphetamines. He was given Narcan then placed on a Narcan drip. He was admitted to the ICU. We continued his Suboxone. Thiamine and folate given. Patient was monitored overnight. He became more awake and alert. Narcan drip weaned off. He signed himself out against medical advise. Status at Discharge Cognitive/behavioral status at discharge: stable Time Spent with Patient Time attestation: Total time spent providing and/or coordinating discharge services: 32 minutes Time spent: Greater than 30 minutes Exam Narrative: AF 98.9 151/103 76 16 98% ra Gen - NARD Chest - Clear to quiet respirations. nml RR CV - RRR S1/S2 Abd - Soft, NT/ND, Positive BS Ext - No pedal edema, 2+ DP pulses Psych - Nml mood. provides minimal hx. Skin - Warm and dry DS: Data Data Completed and Pending Labs on day of discharge: Labs from last 24 hours 04/29/24 04/29/24 01:23 00:12 WBC 7.4 RBC 4.53 L Hgb 14.8 Hct 43.5 MCV 96.0 MCH 32.7 MCHC 34.0 RDW 12.7 Plt Count 276 MPV 9.3 Immature Gran % (Auto) 0.3 Neut % (Auto) 36.4 L Lymph % (Auto) 51.5 H Evangeline % (Auto) 8.1 Eos % (Auto) 2.6 Baso % (Auto) 1.1 Lymph # (Auto) 3.81 H Ev[place] # (Auto) 0.6 Eos # (Auto) 0.2 Baso # (Auto) 0.1 Abs Immat Gran (auto) 0.02 Absolute Neuts (auto) 2.7 Absolute Nucleated RBC 0.000 Nucleated RBC % 0.0 Sodium 144 Potassium 3.9 Chloride 109 H Carbon Dioxide 24 Anion Gap 11 BUN 15 Creatinine 1.00 Estim Creat Clear Calc 77 Estimated GFR > 60 Glucose 78 Calcium 8.4 Magnesium 2.7 H Total Bilirubin 0.4 AST 35 ALT 19 Alkaline Phosphatase 66 Total Protein 7.0 Albumin 4.3 Urine Color Yellow Urine Appearance Clear Urine pH 6.0 Ur Specific [place] 1.006 Urine Protein Negative Urine Glucose (UA) Negative Urine Ketones Negative Ur Blood (Man) Trace Urine Nitrate Negative Urine Bilirubin Negative Urine Urobilinogen 0.2 Leukocyte Esterase Rfl Negative Urine RBC 0-2 Urine WBC 0-5 Ur Squamous Epith Cells None seen Urine Bacteria None seen Urine Casts 0-2 Salicylates < 1.0 L Urine Opiates Screen Negative Urine Methadone Screen Negative Acetaminophen < 10 L Ur Barbiturates Screen Negative Ur Phencyclidine Scrn Negative Ur Amphetamine Screen Positive A U Benzodiazepines Scrn Negative Urine Cocaine Screen Negative U Cannabinoids Screen Negative Ethyl Alcohol 300 Discharge Plan Discharge Patient Disposition: Left Against Medical Advice Patient Instructions: Pain Management (GEN) Discharge Medications: No Action buprenorphine-naloxone 8-2 mg film 1 film sublingual BID Date of admission: 04/29/24 03:15 Primary Care Provider: Joe Javier Admitting Provider: Alfredo Currie V. Attending physician on admission: Alfredo Currie V. Condition: Stable Hospitalist MIPS Heart Failure (Exclusion) Patient has history of Heart Transplant or Left Ventricular Assistive Device?: No IF YES, STOP HERE Heart Failure (Qualifier) Patient has current or prior documentation of LVEF less than or equal to 40%, or mod/servere depressed LVSF?: No IF NO, STOP HERE
== END 2024-04-29 14:00 | disposition left against medical advice (07) ==
LOC: ANHED 04-29 00:02 → ANHICU 04-29 03:24
PROVIDERS: Admitting Provider Internal Medicine; Emergency Provider Family Medicine; PCP Emergency Medicine; Visit Provider Internal Medicine
DX: T40.411A Poisoning by fentanyl or fentanyl analogs, accidental (unintentional), initial encounter (principal); R41.82 Altered mental status, unspecified; F10.129 Alcohol abuse with intoxication, unspecified; Y90.8 Blood alcohol level of 240 mg/100 ml or more; F19.10 Other psychoactive substance abuse, uncomplicated
CPT/HCPCS: 36415; 80053; 80143; 80179; 80307; 81001; 82077; 83735; 85025; 93005; 96361; 96374; 99285; A9270; J2310; J3411; J7030; J7050